=== PATIENT | female | born 1950 | race Two or more races ===

== ENCOUNTER 2018-09-05 11:16 | Outpatient (CLI) | payer OTHER ==
[~2018-09-05 11:16] MED LIST: ISORDIL10 MG PO; LASIX40 MG PO; LYRICA100 MG; LYRICA100 MG PO; METFORMIN HCL500 MG PO; NORVASC10 MG PO; PROZAC40 MG PO; SINGULAIR 10MG10 MG PO; SYNTHROID112 MCG PO; Synthroid 112MCG TABLET PO; XANAX2 MG PO; XOPENEX0.63 MG/3 IH; ZESTRIL5 MG PO
== END 2018-09-05 17:00 | disposition home or self-care (01) ==
LOC: RAD 11:16
DX: M12.9 Arthropathy, unspecified (principal); M19.90 Unspecified osteoarthritis, unspecified site; M46.47 Discitis, unspecified, lumbosacral region

== ENCOUNTER 2018-09-05 12:30 | Outpatient (CLI) | payer OTHER | END 2018-09-05 12:43 | disposition home or self-care (01) | LOC: LAB 12:30 | DX: I10 Essential (primary) hypertension (principal); E11.9 Type 2 diabetes mellitus without complications; E03.8 Other specified hypothyroidism; E78.2 Mixed hyperlipidemia ==

== ENCOUNTER 2020-02-11 10:54 | Outpatient (CLI) | payer OTHER | END 2020-02-11 10:57 | disposition home or self-care (01) | LOC: NUCLEAR 10:54 | PROVIDERS: ATTEND Physical Medicine & Rehabilitation | DX: M81.0 Age-related osteoporosis without current pathological fracture (principal) ==

== ENCOUNTER 2020-07-15 08:36 | Outpatient (CLI) | payer OTHER | END 2020-07-15 08:48 | disposition home or self-care (01) | LOC: NUCLEAR 08:36 | PROVIDERS: ATTEND Ophthalmology | DX: G45.8 Other transient cerebral ischemic attacks and related syndromes (principal); E78.00 Pure hypercholesterolemia, unspecified ==

== ENCOUNTER 2021-06-08 07:33 | Day surgery (SDC) | payer OTHER | END 2021-06-08 13:25 | disposition home or self-care (01) | LOC: AMB-ENDOS 07:33 | PROVIDERS: ATTEND Surgery | DX: K62.89 Other specified diseases of anus and rectum (principal) ==